=== PATIENT | male | born 1995 | race Caucasian/White ===

== ENCOUNTER 2017-01-11 22:33 | Emergency (ER) | payer OTHER ==
[~2017-01-11] VITALS: Ht 188 cm; Wt 81.6 kg
[2017-01-11 22:49] VITALS: BP 152/100
== END 2017-01-11 23:01 | disposition home or self-care (01) ==
LOC: ER 22:36
DX: R21 Rash and other nonspecific skin eruption (principal)
CPT/HCPCS: 99283; A4606; Z7610

== ENCOUNTER 2017-11-29 15:29 | Emergency (ER) | payer MEDICAID, OTHER ==
[~2017-11-29] VITALS: Ht 190.5 cm; Wt 81.6 kg
--- NOTE | 2017-11-29 16:20 | NUR ---
PT WAS SENT HERE BY PMD TO R/O RETRO-PHARYNGEAL ABSCESS, PT ALREADY ON AUGMENTIN. NAD NOTED. TALKING IN FULL SENTENCES, VSS. SEEN BY MD FOR EVAL. SAFETY AND COMFORT MEASURES PROVIDED. WILL MONITOR.
[2017-11-29] MEDS ORDERED: DEXAMETHASONE SOLN 1 MG/1 ML UDC PO ONE (17:00)
--- NOTE | 2017-11-29 17:10 | NUR ---
PT MEDICATED ORDERED.
[2017-11-29] MEDS ORDERED: DEXAMETHASONE SOD PHOSPHATE 10 MG/ML VIAL ONE (17:16)
[2017-11-29] MEDS ORDERED: TETRACAINE/BENZOCAINE/BUTAMBEN 56 GM SPRAY TP ONE ×2 (17:30→17:59)
--- NOTE | 2017-11-29 17:35 | NUR ---
AT FOR PROCEDURE.
[2017-11-29] MEDS ORDERED: DEXAMETHASONE SOD PHOSPHATE 10 MG/ML VIAL IV ONE (18:30)
--- NOTE | 2017-11-29 18:40 | NUR ---
Patient discharged to home in stable condition. Written and verbal after care instructions given. Patient verbalizes understanding of instruction.
[2017-11-29 18:53] VITALS: BP 132/79
== END 2017-11-29 18:53 | disposition home or self-care (01) ==
LOC: ER 15:36
DX: J36 Peritonsillar abscess (principal); F10.10 Alcohol abuse, uncomplicated
CPT/HCPCS: 42700; 96374; 99284; A4606; J1100; Z7610

== ENCOUNTER 2019-10-10 23:54 | Emergency (ER) | payer MEDICAID ==
[~2019-10-10] VITALS: Ht 190.5 cm; Wt 81.6 kg
[2019-10-11] MEDS ORDERED: LIDOCAINE VISCOUS 2% UD 15 ML UDC MM ONE
[2019-10-11 00:02] VITALS: BP 149/72
[2019-10-11] MEDS ORDERED: LIDOCAINE VISCOUS 2% UD 15 ML UDC ONE (00:05)
--- NOTE | 2019-10-11 00:10 | NUR ---
DR OLEA AT BEDSIDE
--- NOTE | 2019-10-11 00:30 | NUR ---
Patient discharged to home in stable condition. Written and verbal after care instructions given. Patient verbalizes understanding of instruction.
== END 2019-10-11 00:30 | disposition home or self-care (01) ==
LOC: ER 23:59
DX: T16.1XXA Foreign body in right ear, initial encounter (principal); W45.8XXA Other foreign body or object entering through skin, initial encounter; Y93.89 Activity, other specified; Y92.89 Other specified places as the place of occurrence of the external cause; Y99.8 Other external cause status